=== PATIENT | male | born 1950 | race Caucasian/White ===

== ENCOUNTER → 2016-12-19 | Outpatient (CLI) | payer OTHER ==
[~2016-12-19] MED LIST: ALPRAZOLAM2 MG PO; CALCITRATE + V1 EACH PO; CATAPRES-TTS 31 EACH; CLONIDINE0.1 PO; COREG6.25 MG PO; HYDRALAZINE 5050 MG PO; LANTUS SUBQ; METHADONE HCL 110 M1 PO; PERCOCET 7.5-31 EACH PO; [UNRECOGNIZED DRUG - OTHER] PO
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
== END | disposition home or self-care (01) ==
LOC: PAIN 12-17 06:48
DX: G89.29 Other chronic pain (principal); E11.9 Type 2 diabetes mellitus without complications; Z79.4 Long term (current) use of insulin; I10 Essential (primary) hypertension; Z79.899 Other long term (current) drug therapy; Z98.890 Other specified postprocedural states; F17.210 Nicotine dependence, cigarettes, uncomplicated; I21.3 ST elevation (STEMI) myocardial infarction of unspecified site; F43.10 Post-traumatic stress disorder, unspecified